=== PATIENT | female | born 1950 | race Two or more races ===

== ENCOUNTER → 2024-05-24 | Outpatient (CLI) | payer MEDICARE, MEDICAID, SELFPAY ==
--- NOTE | 2024-05-24 11:30 | XR_ITS ---
Examination: Screening digital mammography, bilateral Computer aided detection 3-D breast Tomosynthesis, bilateral Date and time of exam: May 24, 2024 1202 hours Compared to mammograms dating to May 26, 2015 Indication: Screening Technique: Nonmagnified MLO, CC views of the breasts to been obtained, reconstructed from 3-D Tomosynthesis images. R2 computer aided detection program utilized for evaluation of suspicious masses and/or abnormal calcifications. 3-D Tomosynthesis images obtained. Findings: Scattered areas of fibroglandular density Benign calcifications. No interval suspicious masses Impression: BI-RADS category II: Benign Findings. Recommend 1 year follow-up mammogram.
--- NOTE | 2024-05-24 12:00 | XR_ITS ---
Examination: Bone densitometry Date and time of exam:May 24, 2024 1224 hours INDICATIONS: Menopause age 49, family history mother with osteoporosis, levothyroxine 30 years vitamin D one year Technique: Lumbar spine and hip total bone mineralization values of an calculated. Peak reference and age match control results have been displayed. Findings: Lumbar spine total bone mineralization is1.423 gm/cm2. This is 3.4 standard deviations above peak reference. This is 5.7 standard deviations above age-matched controls. Hip total bone mineralization is 1.066 gm/cm2 This is 0.8 standard deviations above peak reference. This is 2.4 standard deviations above age-matched controls Impression: There is normal mineralization based on lumbar spine measurements. There is normal mineralization based on hip measurements Lumbar mineralization is increase 10.3% compared with March 17, 2018 Hip mineralization is increase 4.3% compared with March 17, 2018
--- NOTE | 2024-05-24 13:10 | XR_ITS ---
Examination: Breast ultrasound, unilateral, right complete Date and time of exam: May 24, 2024 1317 hours INDICATIONS: Right breast pain and palpable lump near the nipple note is beginning 5 months ago Technique: Real-time gordon scale ultrasonographic imaging performed right breast including all 4 quadrants as well as nipple retroareolar and axillary region. Findings: No cystic or solid mass IMPRESSION: BI-RADS Category 1: Negative study
== END | disposition home or self-care (01) ==
LOC: CDIM 11:54
PROVIDERS: PCP Internal Medicine; Referring Provider Internal Medicine; Visit Provider Internal Medicine
DX: Z12.31 Encounter for screening mammogram for malignant neoplasm of breast (principal); R92.323 Mammographic fibroglandular density, bilateral breasts; R92.1 Mammographic calcification found on diagnostic imaging of breast; M81.0 Age-related osteoporosis without current pathological fracture
CPT/HCPCS: 76641; 77063; 77067; 77080

== ENCOUNTER → 2024-05-25 | Outpatient (CLI) | payer MEDICARE, MEDICAID, SELFPAY ==
[2024-05-25 10:07] LABS: Collection Type, Urine Clean Catch
[2024-05-25 10:35] LABS: Basophils # (Auto) 0.1 Thou/mm3 (0.0-0.2); Basophils % (Auto) 1 % (0-2.5); Eosinophils # (Auto) 0.2 Thou/mm3 (0.0-0.5); Eosinophils % (Auto) 2 % (0-10); Hematocrit 40.8 % (36.0-46.0); Hemoglobin 13.2 g/dL (12.0-16.0); Immature Granulocytes % (Auto) 0 % (0-0); Immature Granulocytes Auto 0.02 Thou/mm3 (0.00-0.00); Lymphocytes # (Auto) 2.2 Thou/mm3 (1.0-4.8); Lymphocytes % (Auto) 27 % (10-50); Mean Corpuscular HGB Conc 32.4 g/dl (31.0-37.0); Mean Corpuscular Hemoglobin 27.9 pg (25.0-35.0); Mean Corpuscular Volume 86 fL (80-100); Monocytes # (Auto) 0.7 Thou/mm3 (0.0-0.8); Monocytes % (Auto) 9 % (0-12); Neutrophils # (Auto) 5.1 Thou/mm3 (1.8-7.7); Neutrophils % (Auto) 62 % (37-80); Nucleated Red Blood Cell % 0 /100 WBC (0); Platelet Count 300 Thou/mm3 (140-440); RDW Standard Deviation 42.5 fL (36.4-46.3); Red Blood Count 4.73 Miln/mm3 (4.00-5.20); White Blood Count 8.3 Thou/mm3 (3.6-11.0)
[2024-05-25 10:36] LABS: Bilirubin,Urine Negative (Negative); Blood,Urine Negative (Negative); Clarity,Urine Clear (Clear/Hazy); Color,Urine Lt-Yellow (Lt Yel-Yel); Glucose, Urine Negative (Negative); Ketones,Urine Negative (Negative); Leukocyte Esterase,Urine Negative (Negative); Nitrite,Urine Negative (Negative); PH,Urine 7.5 (5.0-7.0); Protein,Urine Negative (Neg - Trace); RBC,Urine 2 /hpf (0-3); Specific Gravity,Urine 1.016 (1.001-1.035); Squamous Epithelial Cell,Urine 1 /hpf (0-5); Urobilinogen,Urine Negative mg/dL (0.0-1.0); WBC,Urine 1 /hpf (0-5)
[2024-05-25 10:43] LABS: Glucose Estimated Average 120 mg/dL (80-131); Hemoglobin A1C 5.8 % Hgb (4.8-6.0)
[2024-05-25 10:51] LABS: Alanine Aminotransferase 15 U/L (10-49); Albumin, Serum 4.3 gm/dL (3.4-4.8); Albumin/Globulin Ratio 1.4 (1.2-2.2); Alkaline Phosphatase 87 U/L (46-116); Anion Gap 8 (7-16); Aspartate Amino Transferase 18 U/L (0-34); BUN/Creatinine Ratio 16 Ratio (12-20); Bilirubin,Total 0.5 mg/dL (0.3-1.2); Blood Urea Nitrogen 14 mg/dL (9-23); Calcium 9.3 mg/dL (8.3-10.6); Calcium (Corrected) 9.3 mg/dL (8.5-10.1); Carbon Dioxide 29.3 mMol/L (20.0-31.0); Cardiac Risk Estimate 4.2 RATIO (3.7-5.6); Chloride 103 mMol/L (98-107); Cholesterol 181 mg/dL (132-200); Creatinine (Component) 0.9 mg/dL (0.6-1.3); Glucose 108 mg/dL (74-106); HDL Cholesterol 43 mg/dL (40-60); LDL Cholesterol,Calculated 125 mg/dL (0-130); Osmolality,Calculated 280 (275-295); Potassium 4.2 mMol/L (3.4-5.1); Sodium 140 mMol/L (136-145); Thyroid Stimulating Hormone 1.22 uIU/mL (0.55-4.78); Total Protein 7.3 gm/dL (5.7-8.2); Triglycerides 67 mg/dL (30-150); Uric Acid 7.8 mg/dL (3.1-7.8); eGFR > 60 See Note
[2024-05-25 14:05] LABS: Vitamin D 25 Hydroxy Total 53.1 ng/mL (7.3-40.2)
[2024-05-25 16:12] LABS: Vitamin B12 276 pg/mL (211-911)
== END | disposition home or self-care (01) ==
LOC: COPL 09:29
PROVIDERS: PCP Internal Medicine; Referring Provider Internal Medicine; Visit Provider Internal Medicine
DX: I10 Essential (primary) hypertension (principal); E78.5 Hyperlipidemia, unspecified
CPT/HCPCS: 36415; 80053; 80061; 81001; 82306; 82607; 83036; 84443; 84550; 85025

== ENCOUNTER → 2024-11-21 | Outpatient (CLI) | payer MEDICARE, MEDICAID, SELFPAY ==
[2024-11-21 10:48] LABS: Albumin, Serum 4.4 gm/dL (3.4-4.8); Anion Gap 8 (7-16); BUN/Creatinine Ratio 10 Ratio (12-20); Blood Urea Nitrogen 8 mg/dL (9-23); Calcium 9.4 mg/dL (8.3-10.6); Calcium (Corrected) 9.4 mg/dL (8.5-10.1); Carbon Dioxide 25.8 mMol/L (20.0-31.0); Chloride 107 mMol/L (98-107); Creatinine (Component) 0.8 mg/dL (0.6-1.3); Free T4 (Free Thyroxine) 1.54 ng/dL (0.89-1.76); Glucose 104 mg/dL (74-106); Osmolality,Calculated 279 (275-295); Phosphorous 2.7 mg/dL (2.4-5.1); Potassium 3.8 mMol/L (3.4-5.1); Sodium 141 mMol/L (136-145); Thyroid Stimulating Hormone 0.57 uIU/mL (0.55-4.78); eGFR > 60 See Note
[2024-11-21 11:06] LABS: Glucose Estimated Average 114 mg/dL (80-131); Hemoglobin A1C 5.6 % Hgb (4.8-6.0)
== END | disposition home or self-care (01) ==
LOC: COPL 09:27
PROVIDERS: PCP Internal Medicine; Referring Provider Internal Medicine; Visit Provider Internal Medicine
DX: E03.9 Hypothyroidism, unspecified (principal); I10 Essential (primary) hypertension; R73.03 Prediabetes
CPT/HCPCS: 36415; 80069; 83036; 84439; 84443

== ENCOUNTER → 2024-11-26 | Outpatient (CLI) | payer MEDICARE, MEDICAID, SELFPAY ==
[2024-11-26 12:08] LABS: OBS Performed By LAB; OBS QC OK? Yes
[2024-11-26 15:11] LABS: OBS Developer Lot # 4-24-551749; Occult Blood, Stool Negative (Negative); Occult Blood, Stool #2 Negative (Negative); Occult Blood, Stool #3 Negative (Negative)
[2024-11-26 15:12] LABS: OBS Developer Expiration Date 02-28-2027
== END | disposition home or self-care (01) ==
LOC: SLDO 11:49
PROVIDERS: PCP Internal Medicine; Referring Provider Internal Medicine; Visit Provider Internal Medicine
DX: Z12.11 Encounter for screening for malignant neoplasm of colon (principal)
CPT/HCPCS: 82270

== ENCOUNTER → 2024-11-30 | Outpatient (CLI) | payer MEDICARE, MEDICAID, SELFPAY ==
--- NOTE | 2024-11-30 | XR_ITS ---
Examination: Knee, right, 3 views Technique: Knee AP, lateral, oblique 3 views Date and time of exam: November 30, 2024, 0202 hours INDICATIONS: Right knee pain beginning 1 week ago FINDINGS: Mild to moderate tricompartment osteoarthritis, most prominent patellofemoral joint Small knee effusion No fracture IMPRESSION: Mild to moderate tricompartment osteoarthritis
== END | disposition home or self-care (01) ==
LOC: CDIM 11:17
PROVIDERS: PCP Internal Medicine; Referring Provider Internal Medicine; Visit Provider Internal Medicine
DX: M17.11 Unilateral primary osteoarthritis, right knee (principal)
CPT/HCPCS: 73560

== ENCOUNTER 2024-12-13 10:29 | Outpatient (AMB) | payer MEDICARE, MEDICAID, SELFPAY ==
[2024-12-13 10:52] VITALS: BP 134/81; PULSE 72; RESP 18; TEMP 36.6; O2SAT 95; BMI 34.2
--- NOTE | 2024-12-13 10:52 | ORTHONT_ITS ---
Vital signs 12/13/24 10:52 Height 1.52 m Height Method Stated Weight 79.435 kg Weight Measurement Method Standing Scale BMI 34.2 BP 134/81 H Blood Pressure Source Automatic Cuff Blood Pressure Location Right Upper Arm Position Sitting Respiration 18 Pulse 72 Pulse Source Monitor Temp 97.9 F Temp Source Temporal Artery Scan Pulse Oximetry (%) 95 Oxygen Delivery Method Room Air Med/Allergies Allergies & Medications Allergies clindamycin Allergy (Severe, Verified 12/13/24 10:54) Swelling of Lip/Tongue/Throat Penicillins Allergy (Severe, Verified 12/13/24 10:54) Anaphylaxis amlodipine Allergy (Intermediate, Verified 12/13/24 10:54) SWELLING/BODY ACHES hydrochlorothiazide Allergy (Intermediate, Verified 12/13/24 10:54) SWELLING/BODY ACHES losartan Allergy (Intermediate, Verified 12/13/24 10:54) SWELLING/BODY ACHES nitrofurantoin Allergy (Intermediate, Verified 12/13/24 10:54) SWELLING/BODY ACHE tolterodine (From Detrol) Allergy (Intermediate, Verified 12/13/24 10:54) SWELLING/BODY ACHES Medication Reconciliation No Known Home Medications 12/13/24 [History Confirmed 12/13/24] Exam Exam PHYSICAL EXAM Breathing is nonlabored. Patient has a normal mood and affect. Bilateral extremities were evaluated and demonstrates sensation intact to light touch. Palpable pedal pulses are present. No significant edema is present. Bilateral hips were examined. The patient has no pain with log roll of the hips. Internal rotation to 30 degrees and external rotation to 30 degrees is painless. Negative FADIR. Left knee was examined today. The left knee is in reasonable alignment. Range of motion from 0-120 degrees. Knee is stable to varus and valgus as well as AP translation with <5mm. Patient has a negative McMurrays. There is no pain with patellofemoral compression and no crepitus noted. The knee is nontender to palpation. The right knee was also examined. The right knee is in varus alignment. Range of motion from 0-115 degrees. Knee is stable to varus and valgus as well as AP translation with <5mm. Patient has a negative McMurrays. There is no pain with patellofemoral compression and no crepitus noted. The knee is tender to palpation medially. Assessment and Plan Problem List (1) Pain in right knee: Status: Acute Plan: ASSESSMENT AND PLAN 1. Right knee pain: The patient's right knee pain has persisted for 3 to 4 years and worsened about 4 weeks ago. The pain is constant, rated at 6 out of 10, and is present all day and night. She has had 1 cortisone injection, which did not provide relief. Diclofenac gel and tablets have also been ineffective. The pain is exacerbated by walking and relieved somewhat by using a walker or shopping cart for support. X-rays from 11/30/2024 show mild to moderate arthritis of the right knee. An additional x-ray with a tunnel view will be ordered to better assess the arthritis. Authorization for another injection will be obtained, and an injection on the inside of the knee will be considered. Voltaren cream was recommended, but the patient has already tried diclofenac gel without success. A knee brace will be provided to help with weight-bearing. Advanced Care Planning Discussion Advance care planning discussed with:: patient Office Procedures GNS Level of Care Nursing/Assessment Patient Status: Initial/New Patient Nursing Assessment/Reassesment: Medication Reconciliation, Update PMH in EMR and Vital Signs Coordination of Care: Complex Care and Chronic Disease 1-5, Education Complex Pt/Fam, Consent,records obtained, informed consent, Lab and Imaging orders, Results/Orders obtained and Staff clarify orders Special Needs: Language special needs New Patient Charge New Patient Point Assignment: 1109 New Patient Point Charge: SALES DEMONSTRATOR Level 3 ([id number]) MA Intake Visit Data Collection New Patient or Established: Established Patient (seen at [facility] within 3 years) Reason for Visit:: RIGHT KNEE PAIN Seen by Clinical Staff ONLY (RN/MA): No Verbal consent obtained for Telemed visit?: No Agricultural Mechanic Required: Yes PCP or OBGYN visit in last 3 months: Yes Hx Now: No Do You Feel Safe at Home: Yes Authorities Contacted: N/A Questionairres Past Medical History Past Medical History Have you ever been diagnosed with any of the following: Neurological Problems Seizures: No Robertson's Palsy: Yes (AT AGE 13) Cardiology Problems Congestive Heart Failure: No Hypertension: Yes Respiratory Problems Chronic Obstructive Pulmonary Disease (COPD): No Asthma: No Bronchitis: Yes Pneumonia: No Stomache/Intestinal Problems Hepatitis: No Ulcer: No Gastroesophageal Reflux Disease: Yes Genital/Urinary Problems Renal Disease: No Kidney Stones: No Inguinal Hernia: No Reproductive Problems Previous Pregnancies: Yes (X4) Musculoskeletal Problems Rheumatoid Arthritis: Yes Fibromyalgia: Yes Head,Eye,Nose,Throat Problems Cataracts: Yes (BILATERAL, NO SURGERY) Endocrine Problems Diabetes Mellitus Type 1: No Diabetes Mellitus Type 2: No Hypothyroidism: Yes Blood Problems Anemia: No Psychologic Problems Depression: No Anxiety: Yes Other Problems Hospitalization: Yes (05/14/20 DUE TO HIGH BLOOD PRESSURE) Shingles: No Falls: No Blood Transfusions: No Blood Transfusion Reaction: No Anesthesia Reactions: No MRSA: No Chicken Pox: Yes Measles: Yes Mumps: Yes Cancer: No Surgical History Hysterectomy: No Subjective Visit Visit for: new patient and knee Immunization / Flu Flu Vaccine in the Last 12 Months: No Flu Vaccine Exclusion Criteria: No Exclusion Criteria History of Present Illness Chief complaint: RIGHT KNEE PAIN HISTORY OF PRESENT ILLNESS I, John Nugent, have obtained verbal consent from the patient, to be recorded during this encounter which may include, but not limited to, medical history, examination, treatment plans, and relevant health information.? Patient was informed that recording will be read and reviewed by myself before inclusion in the medical chart. The patient is a 74-year-old female who presents for evaluation of her right knee. She reports that the pain in her right knee has been present for 3 to 4 years, with a significant increase in severity occurring approximately 4 weeks ago. The pain is constant, rated as a 6 out of 10, and persists throughout the day and night. She describes the pain as shooting down her leg, accompanied by a burning sensation. Prolonged sitting exacerbates the discomfort, necessitating frequent changes in position between sitting and standing. She does not experience any numbness or tingling sensations. The pain is localized to the right side, with no reported issues on the left. She also reports swelling in the affected area. She has been using a cane for mobility due to the severity of the pain. She has been using diclofenac gel and tablets, but these have not provided relief. She has received one cortisone injection, which unfortunately did not alleviate the pain. Personal History Occupation: RETIRED Red flag PMH: none BMI Counceling provided: No Pain Pain level (0-10): 10 Pain duration: CONSTANT Pain location: inside (medial) Pain quality: sharp and burning Pain timing: night, increases with activity and stairs Associated signs & symptoms: stiffness Ambulatory data Ambulatory device: cane Treatments Number of previous injections: 1 Improvement with previous injections: No Improvement with PT: No Improvement with NSAIDS: no (DICLOFENAC) Review of Systems Review of Systems: All systems negative unless otherwise noted in HPI.
--- NOTE | 2024-12-13 11:00 | XR_ITS ---
EXAMINATION: PA knee right single view TECHNIQUE: Standing PA flexion right knee single view Date and time: December 13, 2024, 11:24 a.m. INDICATIONS: Right knee pain beginning 3 weeks ago. FINDINGS: Mild osteoarthritis medial lateral joint spaces Spurring of the intercondylar spines Moderate osteopenia No fracture Suggest follow-up axillary view of the patella as clinically warranted IMPRESSION: Osteoarthritis as above
== END 2024-12-13 11:12 | disposition home or self-care (01) ==
LOC: HODSRG 10:29
PROVIDERS: PCP Internal Medicine; Referring Provider Internal Medicine; Supervising Provider Orthopaedic Surgery Adult Reconstructive Orthopaedic Surgery; Visit Provider Orthopaedic Surgery Adult Reconstructive Orthopaedic Surgery
DX: M25.561 Pain in right knee (principal); M17.11 Unilateral primary osteoarthritis, right knee; I10 Essential (primary) hypertension
CPT/HCPCS: 73564; 99203; G0463

== ENCOUNTER 2024-12-18 10:28 | Outpatient (AMB) | payer MEDICARE, MEDICAID, SELFPAY ==
[2024-12-18 10:55] VITALS: BP 111/75; PULSE 80; RESP 19; TEMP 36.3; O2SAT 97; BMI 34.2
--- NOTE | 2024-12-18 10:55 | ORTHONT_ITS ---
Vital signs 12/18/24 10:55 Height 1.52 m Height Method Stated Weight 79.01 kg Weight Measurement Method Standing Scale BMI 34.2 BP 111/75 Blood Pressure Source Automatic Cuff Blood Pressure Location Left Upper Arm Position Sitting Respiration 19 Pulse 80 Pulse Source Monitor Temp 97.3 F Temp Source Temporal Artery Scan Pulse Oximetry (%) 97 Oxygen Delivery Method Room Air Med/Allergies Allergies & Medications Allergies clindamycin Allergy (Severe, Verified 12/18/24 10:56) Swelling of Lip/Tongue/Throat Penicillins Allergy (Severe, Verified 12/18/24 10:56) Anaphylaxis amlodipine Allergy (Intermediate, Verified 12/18/24 10:56) SWELLING/BODY ACHES hydrochlorothiazide Allergy (Intermediate, Verified 12/18/24 10:56) SWELLING/BODY ACHES losartan Allergy (Intermediate, Verified 12/18/24 10:56) SWELLING/BODY ACHES nitrofurantoin Allergy (Intermediate, Verified 12/18/24 10:56) SWELLING/BODY ACHE tolterodine (From Detrol) Allergy (Intermediate, Verified 12/18/24 10:56) SWELLING/BODY ACHES Medication Reconciliation meloxicam 7.5 mg tablet 7.5 mg PO QDAY #45 tabs 12/18/24 [Rx] pregabalin 75 mg capsule (Lyrica) 75 mg PO BID #60 caps 12/18/24 [Rx] Exam Exam PHYSICAL EXAM Breathing is nonlabored. Patient has a normal mood and affect. Bilateral extremities were evaluated and demonstrates sensation intact to light touch. Palpable pedal pulses are present. No significant edema is present. Bilateral hips were examined. The patient has no pain with log roll of the hips. Internal rotation to 30 degrees and external rotation to 30 degrees is painless. Negative FADIR. Left knee was examined today. The left knee is in reasonable alignment. Range of motion from 0-120 degrees. Knee is stable to varus and valgus as well as AP translation with <5mm. Patient has a negative McMurrays. There is no pain with patellofemoral compression and no crepitus noted. The knee is nontender to palpation. The right knee was also examined. The right knee is in varus alignment. Range of motion from 0-115 degrees. Knee is stable to varus and valgus as well as AP translation with <5mm. Patient has a negative McMurrays. There is no pain with patellofemoral compression and no crepitus noted. The knee is tender to palpation medially. X-rays of the Mild to moderate arthritis of the right knee. Assessment and Plan Problem List (1) Pain in right knee: Status: Acute Plan: ASSESSMENT AND PLAN 1. Right knee pain: The patient's right knee pain has persisted for 3 to 4 years and worsened about 4 weeks ago. The pain is constant, rated at 6 out of 10, and is present all day and night. She has had 1 cortisone injection, which did not provide relief. Diclofenac gel and tablets have also been ineffective. The pain is exacerbated by walking and relieved somewhat by using a walker or shopping cart for support. X-rays from 11/30/2024 show mild to moderate arthritis of the right knee. We will try a cortisone injection today as she has mild to moderate arthritis Recommend knee cortisone injection as patient would like to proceed with conservative treatment at this time. The risks and benefits of the procedure were reviewed with the patient and patient gave verbal consent to continue with the procedure. Procedure: performed by Dr. Nugent Using sterile technique the Right knee was thoroughly prepped with alcohol, and approximately 1 cc of Depo-Medrol 80mg/mL and 4 cc of 0.2% ropivacaine was injected without resistance into the medial tibial femoral joint space. The patient tolerated the procedure. Advanced Care Planning Discussion Advance care planning discussed with:: patient Office Procedures GNS Level of Care Nursing/Assessment Patient Status: Established Patient Nursing Assessment/Reassesment: Medication Reconciliation, Update PMH in EMR and Vital Signs Coordination of Care: Complex Care and Chronic Disease 1-5, Education Complex Pt/Fam, Consent,records obtained, informed consent, Results/Orders obtained and Staff clarify orders Special Needs: Language special needs Established Patient Charge Established Patient Point Assignment: 95 Established Patient Point Charge: EP Level 3 (80-115) Surgical Proc/IM SQ injection Minor Surgical Procedure: Yes (KNEE INJECTION) Medication Given Medication Given Medication Given: Yes Documented Dose Given: 1 Route: Infiitration Medication Given Medication Given Medication Given: Yes Documented Dose Given: 4 Route: Infiitration Office Meds methylprednisolone acetate 80 mg/mL suspension for injection Performing Provider: John Nugent MD Performing Location: [facility] Administered by: John Nugent MD on 12/18/24 11:25 Dose Route Admin Location Dispensed Lot Number Expiration Date Pack age [facility] [place] [facility] Plan Administrator 80 mg intra-articular 1 mL [id number] 08/20/26 [address]-0 [id number] [employer] ropivacaine (PF) 2 mg/mL (0.2 %) injection solution Performing Provider: John Nugent MD Performing Location: [facility] Administered by: John Nugent MD on 12/18/24 11:36 Dose Route Admin Location Dispensed Lot Number Expiration Date Pack age [facility] Hospital Plan Administrator 20 mL Infiltration 20 mL [id number] 03/22/27 10688-021-71 [id number] [facility] Intake Visit Data Collection New Patient or Established: Established Patient (seen at [facility] within 3 years) Reason for Visit:: RIGHT KNEE PAIN Seen by Clinical Staff ONLY (RN/MA): No Verbal consent obtained for Telemed visit?: No Bottle Gauger Required: Yes PCP or OBGYN visit in last 3 months: Yes Hx Now: No Do You Feel Safe at Home: Yes Authorities Contacted: N/A Questionairres Past Medical History Past Medical History Have you ever been diagnosed with any of the following: Neurological Problems Seizures: No Robertson's Palsy: Yes (AT AGE 13) Cardiology Problems Congestive Heart Failure: No Hypertension: Yes Respiratory Problems Chronic Obstructive Pulmonary Disease (COPD): No Asthma: No Bronchitis: Yes Pneumonia: No Stomache/Intestinal Problems Hepatitis: No Ulcer: No Gastroesophageal Reflux Disease: Yes Genital/Urinary Problems Renal Disease: No Kidney Stones: No Inguinal Hernia: No Reproductive Problems Previous Pregnancies: Yes (X4) Musculoskeletal Problems Rheumatoid Arthritis: Yes Fibromyalgia: Yes Head,Eye,Nose,Throat Problems Cataracts: Yes (BILATERAL, NO SURGERY) Endocrine Problems Diabetes Mellitus Type 1: No Diabetes Mellitus Type 2: No Hypothyroidism: Yes Blood Problems Anemia: No Psychologic Problems Depression: No Anxiety: Yes Other Problems Hospitalization: Yes (05/14/20 DUE TO HIGH BLOOD PRESSURE) Shingles: No Falls: No Blood Transfusions: No Blood Transfusion Reaction: No Anesthesia Reactions: No MRSA: No Chicken Pox: Yes Measles: Yes Mumps: Yes Cancer: No Surgical History Hysterectomy: No Subjective Visit Visit for: follow up visit, knee and x-rays Immunization / Flu Flu Vaccine in the Last 12 Months: No Flu Vaccine Exclusion Criteria: No Exclusion Criteria History of Present Illness Chief complaint: RIGHT KNEE PAIN HISTORY OF PRESENT ILLNESS I, John Nugent, have obtained verbal consent from the patient, to be recorded during this encounter which may include, but not limited to, medical history, examination, treatment plans, and relevant health information.? Patient was informed that recording will be read and reviewed by myself before inclusion in the medical chart. The patient is a 74-year-old female who presents for evaluation of her right knee. She reports that the pain in her right knee has been present for 3 to 4 years, with a significant increase in severity occurring approximately 4 weeks ago. The pain is constant, rated as a 6 out of 10, and persists throughout the day and night. She describes the pain as shooting down her leg, accompanied by a burning sensation. Prolonged sitting exacerbates the discomfort, necessitating frequent changes in position between sitting and standing. She does not experience any numbness or tingling sensations. The pain is localized to the right side, with no reported issues on the left. She also reports swelling in the affected area. She has been using a cane for mobility due to the severity of the pain. She has been using diclofenac gel and tablets, but these have not provided relief. She has received one cortisone injection, which unfortunately did not alleviate the pain. Personal History Occupation: RETIRED Red flag PMH: none BMI Counceling provided: No Pain Pain level (0-10): 8 Pain duration: CONSTANT Pain location: inside (medial) Pain quality: sharp and burning Pain timing: night, increases with activity and stairs Associated signs & symptoms: stiffness Ambulatory data Ambulatory device: cane Treatments Number of previous injections: 1 Improvement with previous injections: No Improvement with PT: No Improvement with NSAIDS: no (DICLOFENAC) Review of Systems Review of Systems: All systems negative unless otherwise noted in HPI.
== END 2024-12-18 11:37 | disposition home or self-care (01) ==
LOC: HODSRG 10:28
PROVIDERS: PCP Internal Medicine; Referring Provider Internal Medicine; Supervising Provider Orthopaedic Surgery Adult Reconstructive Orthopaedic Surgery; Visit Provider Orthopaedic Surgery Adult Reconstructive Orthopaedic Surgery
DX: M25.561 Pain in right knee (principal); M17.11 Unilateral primary osteoarthritis, right knee; I10 Essential (primary) hypertension
CPT/HCPCS: 20610; 99213; J1010; J2795; G0463

== ENCOUNTER 2024-12-28 15:56 | Emergency (ER) | payer OTHER, MEDICAID, SELFPAY ==
[2024-12-28 15:57] VITALS: BMI 32.0
[2024-12-28 16:08] VITALS: BP 147/71; PULSE 84; RESP 22; TEMP 38.3; O2SAT 95
--- NOTE | 2024-12-28 16:12 | XR_ITS ---
CLINICAL INDICATION: r/o pna. Fever and high blood pressure for 3 days. TECHNIQUE: XR chest 1V portable Exam date and time: 12/28/2024 at 4:13 p.m. COMPARISON: 09/01/2019 FINDINGS: The cardiomediastinal silhouette is within normal limits. No airspace opacities suggestive of pneumonia. No mass detected. No pleural effusion or pneumothorax. Degenerative changes of the skeletal structures. Mild thoracic dextroscoliosis is again seen. No apparent acute osseous abnormality. IMPRESSION: No radiographic evidence for acute cardiopulmonary abnormality. No evidence for pneumonia as questioned. No significant change since prior exam.
--- NOTE | 2024-12-28 16:13 | PD.EDRME ---
Rapid Medical Screening Exam RME Arrival date/time: 12/28/24 15:56 74-year-old female with a history of hypothyroidism presents to the emergency room with a chief complaint of fevers, weakness x 3 days I have greeted and performed a focused initial assessment of this patient. A comprehensive ED assessment and evaluation of the patient, analysis of all test results, and completion of the medical decision making process will be conducted by additional ED providers. Chief Complaint: Fever Time Seen by Provider: 12/28/24 16:00 Vital signs: Vital Signs Temperature 101 F H 12/28/24 16:08 Pulse Rate 84 12/28/24 16:08 Respiratory Rate 22 H 12/28/24 16:08 Blood Pressure 147/71 H 12/28/24 16:08 Pulse Oximetry (%) 95 12/28/24 16:08 Oxygen Delivery Method Room Air 12/28/24 16:08 Vital signs reviewed by provider: Yes Exam: Soft nontender abdomen Clear bilateral lung sounds. Strong and regular rhythm Clinical Impression: Sepsis/UTI/gastroenteritis
[2024-12-28 16:24] VITALS: TEMP 38.3
[2024-12-28] MEDS: ACETAMINOPHEN 500 MG TABLET 1000 MG PO (16:24)
[2024-12-28 16:39] LABS: Collection Type, Urine Clean Catch
[2024-12-28 16:44] LABS: Basophils # (Auto) 0.0 Thou/mm3 (0.0-0.2); Basophils % (Auto) 0 % (0-2.5); Eosinophils # (Auto) 0.0 Thou/mm3 (0.0-0.5); Eosinophils % (Auto) 0 % (0-10); Hematocrit 43.8 % (36.0-46.0); Hemoglobin 14.2 g/dL (12.0-16.0); Immature Granulocytes Auto 0.07 Thou/mm3 (0.00-0.00); Lactate (Lactic Acid) 2.2 mMol/L (0.4-2.0); Lymphocytes # (Auto) 1.3 Thou/mm3 (1.0-4.8); Lymphocytes % (Auto) 9 % (10-50); Mean Corpuscular HGB Conc 32.4 g/dl (31.0-37.0); Mean Corpuscular Hemoglobin 28.1 pg (25.0-35.0); Mean Corpuscular Volume 87 fL (80-100); Monocytes # (Auto) 0.7 Thou/mm3 (0.0-0.8); Monocytes % (Auto) 5 % (0-12); Neutrophils # (Auto) 12.2 Thou/mm3 (1.8-7.7); Neutrophils % (Auto) 86 % (37-80); Nucleated Red Blood Cell # 0.00 Thou/mm3 (0.00-0.00); Nucleated Red Blood Cell % 0 /100 WBC (0); Platelet Count 231 Thou/mm3 (140-440); RDW Standard Deviation 41.9 fL (36.4-46.3); Red Blood Count 5.05 Miln/mm3 (4.00-5.20); White Blood Count 14.3 Thou/mm3 (3.6-11.0)
[2024-12-28 16:44] LABS: Bacteria,Urine Rare; Bilirubin,Urine Negative (Negative); Blood,Urine Trace (Negative); Color,Urine Lt-Yellow (Lt Yel-Yel); Glucose, Urine Negative (Negative); Ketones,Urine Negative (Negative); Leukocyte Esterase,Urine Positive (Negative); Nitrite,Urine Negative (Negative); PH,Urine 7.0 (5.0-7.0); Protein,Urine Trace (Neg - Trace); RBC,Urine 1 /hpf (0-3); Specific Gravity,Urine 1.011 (1.001-1.035); Squamous Epithelial Cell,Urine 1 /hpf (0-5); Urobilinogen,Urine Negative mg/dL (0.0-1.0); WBC,Urine 9 /hpf (0-5)
[2024-12-28 16:52] LABS: Clarity,Urine Hazy (Clear/Hazy)
[2024-12-28 17:01] LABS: Influenza A Ag Negative; Influenza B Ag Negative
[2024-12-28 17:09] LABS: Alanine Aminotransferase 24 U/L (10-49); Albumin, Serum 4.8 gm/dL (3.4-4.8); Albumin/Globulin Ratio 1.7 (1.2-2.2); Alkaline Phosphatase 111 U/L (46-116); Anion Gap 10 (7-16); Aspartate Amino Transferase 20 U/L (0-34); BUN/Creatinine Ratio 15 Ratio (12-20); Bilirubin,Total 0.7 mg/dL (0.3-1.2); Blood Urea Nitrogen 16 mg/dL (9-23); Calcium 8.8 mg/dL (8.3-10.6); Calcium (Corrected) 8.8 mg/dL (8.5-10.1); Carbon Dioxide 24.1 mMol/L (20.0-31.0); Chloride 98 mMol/L (98-107); Creatinine (Component) 1.1 mg/dL (0.6-1.3); Estimated Creatinine Clearance 44.4 mL/min (>60); Free T4 (Free Thyroxine) 1.50 ng/dL (0.89-1.76); Globulin 2.8 gm/dL (2.3-3.5); Glucose 108 mg/dL (74-106); Lipase 36 U/L (12-53); Osmolality,Calculated 266 (275-295); Potassium 4.0 mMol/L (3.4-5.1); Sodium 132 mMol/L (136-145); Thyroid Stimulating Hormone 0.73 uIU/mL (0.55-4.78); Total Protein 7.6 gm/dL (5.7-8.2); eGFR 53 See Note
[2024-12-28 17:11] LABS: Procalcitonin 0.98 ng/ml (0.0-0.49)
[2024-12-28 18:13] VITALS: BP 130/79; PULSE 77; RESP 16; TEMP 37.7; O2SAT 97
--- NOTE | 2024-12-28 18:20 | EDNOTE_ITS ---
ED Fever RME/HPI General Chief Complaint: Fever Stated Complaint: FEVER/HIGH BP x 2-3 DAYS Time Seen by Provider: 12/28/24 16:00 Arrival date/time: 12/28/24 15:56 74-year-old female patient came in for evaluation regarding fever. Been having fever for the last few days, comes and goes associated with elevated blood pressure. Denies any cough denies any chest pain denies any abdominal pain denies any other complaints no medication was taken prior to ER visit. RME / HPI RME / HPI Narrative: 12/28/24 15:56 74-year-old female with a history of hypothyroidism presents to the emergency room with a chief complaint of fevers, weakness x 3 days I have greeted and performed a focused initial assessment of this patient. A comprehensive ED assessment and evaluation of the patient, analysis of all test results, and completion of the medical decision making process will be conducted by additional ED providers. Exam: Soft nontender abdomen Clear bilateral lung sounds. Strong and regular rhythm Impression: Sepsis/UTI/gastroenteritis Related Data Previous Rx's ?Medication ?Instructions ?Recorded meloxicam 7.5 mg tablet 7.5 mg PO QDAY #45 tabs 11/22 10/15 pregabalin 75 mg capsule (Lyrica) 75 mg PO BID #60 cap s 12/18/24 cefuroxime axetil 500 mg tablet 500 mg PO BID #14 tabs 12/28/24 Allergies Allergy/AdvReac Type Severity Reaction Status Date / Time amlodipine Allergy Severe SWELLING/BODY Verified 12/28/24 16:02 ACHES clindamycin Allergy Severe Swelling Verified 12/28/24 16:02 of Lip/Tongue/Throat hydrochlorothiazide Allergy Severe SWELLING/BODY Verified 12/28/24 16:02 ACHES losartan Allergy Severe SWELLING/BODY Verified 12/28/24 16:02 ACHES nitrofurantoin Allergy Severe SWELLING/BODY Verified 12/28/24 16:02 ACHE Penicillins Allergy Severe Anaphylaxis Verified 12/28/24 16:02 tolterodine (From Detrol) Allergy Severe SWELLING/BODY Verified 12/28/24 16:02 ACHES Review of Systems Review of Systems Narrative Review of Systems: Review of system reviewed and within normal limits except mentioned in HPI Physical Exam Narrative Physical exam: VITAL SIGNS: Reviewed. GENERAL APPEARANCE: Alert and interactive, follows commands, no acute distress, HEAD AND FACE: Non-traumatic. ENT: PERRL, pink conjunctivitis, eyelid no trauma, Mucous membrane moist. NECK: Supple, nontender, no nuchal rigidity. CHEST: No tenderness, no crepitus, no paradoxical movement, no retractions. LUNGS: Clear, well ventilated, symmetric, no rales, no wheezing, no ronchi, no stridor, good breath sounds bilaterally. HEART: Regular rate, regular rhythm, no murmur, no gallops. ABDOMEN: Soft, positive bowel sounds, nondistended, no guarding, nontender, no rebound, no masses, RECTAL: Deferred. GENITAL: Deferred. NEUROLOGICAL: Gross motor function intact sensory function intact, Appropriate for age. MUSCULOSKELETAL: low back nontender, full range of motion. EXTREMITIES: Nontender, full range of motion. SKIN: Color pink, dry, no rash, no lacerations, no abrasions, no contusions. LYMPHATICS: Deferred. Course Quality Measures none Orders Category Date Time Status Bedside COVID-19 Antigen Test NOW Care 12/28/24 16:12 Active XR chest 1V portable Stat Exams 12/28/24 16:12 Completed Blood Culture (Lab) Stat Lab 12/28/24 16:34 Received CBC Stat Lab 12/28/24 16:34 Completed CMP [Comprehensive Metabolic Panel] Stat Lab 12/28/24 16:34 Completed Free T4 (Free Thyroxine) Stat Lab 12/28/24 16:34 Completed Influenza A & B Rapid Panel Stat Lab 12/28/24 16:25 Completed Lactate (Lactic Acid) Stat Lab 12/28/24 16:34 Results Lipase Stat Lab 12/28/24 16:34 Completed Procalcitonin Stat Lab 12/28/24 16:34 Completed TSH [Thyroid Stimulating Hormone] Stat Lab 12/28/24 16:34 Completed UA [Urinalysis] Stat Lab 12/28/24 16:30 Completed Urine Culture Stat Lab 12/28/24 16:30 Received Acetaminophen Tab [Tylenol ES Tab] Med 12/28/24 16:12 Discontinued 1,000 mg PO X1 ONE Ringers Lactated 1000 ml [Lactated Ringers] 1,000 ml Med 12/28/24 18:19 Active IV 999 mls/hr cefTRIAXone/D5w 1gm IV premix [Rocephin/D5w 1gm IV Med 12/28/24 18:19 Discontinued premix] 1 gm in 50 ml IV X1 Vital Signs Vital signs: Vital Signs Temperature 101 F H 12/28/24 16:08 Pulse Rate 84 12/28/24 16:08 Respiratory Rate 22 H 12/28/24 16:08 Blood Pressure 147/71 H 12/28/24 16:08 Pulse Oximetry (%) 95 12/28/24 16:08 Oxygen Delivery Method Room Air 12/28/24 16:08 Fever [facility] Narrative [facility] Narrative:: 74-year-old female patient came in for evaluation regarding fever. Been having fever for the last few days, comes and goes associated with elevated blood pressure. Denies any cough denies any chest pain denies any abdominal pain denies any other complaints no medication was taken prior to ER visit. Patient's workup is significant for WBC count of 14.2 lactic acid slight elevated 2.2, positive for UTI. I personally reviewed and interpreted the x-ray of this patient. There is no acute abnormalities found, no infiltrates no pneumothorax no hemothorax normal chest x-ray. Review of other structures was without significant abnormal findings also. I additionally reviewed the radiologist report and agree with the interpretation. Patient received CeftriaxoneIV, Tylenol and IV fluids. Patient stable for discharge home. Repeat lactic acid pending at this time. Patient data External records reviewed:: None Clinical information provided by:: patient Social determinants that could affect healthcare access:: none Patient has the following chronic illnesses:: Hypertension How is presenting disease/condition affected by chronic disease/condition?: uneffected by Evaluation data The following diagnostics were reviewed and interpreted by me:: lab results and radiology exam(s) Lab and/or radiology exams considered but not ordered:: None Interpretation Summary: See results [facility] Medications / Prescriptions Medications or Prescriptions considered but not ordered:: None Medication administrations:: Medication Administration History Lactated Ringer's (Lactated Ringers) 1,000 mls @ 999 mls/hr IV .Q1H1M ONE Stop: 12/28/24 19:19 Last Admin: 12/28/24 18:36 Dose: 999 mls/hr Documented By: EF Discontinued Medications Acetaminophen (Acetaminophen 500 Mg Tablet) 1,000 mg PO X1 ONE Stop: 12/28/24 16:13 Last Admin: 12/28/24 16:24 Dose: 1,000 mg Documented By: COSTA Ceftriaxone Sodium/Dextrose (Rocephin/D5w 1gm Iv Premix) 1 gm in 50 mls @ 100 mls/hr IV X1 ONE Stop: 12/28/24 18:48 Last Admin: 12/28/24 18:35 Dose: 100 mls/hr Documented By: EF See MDM Consultations Consultation(s) initiated? (list below): No Diagnosis Fever Differential Diagnosis: viral infection and other (UTI, viral infection) Most likely diagnosis given after review of the tests above:: Fever, UTI Admission Indicated Admission indicated?: not indicated Admission Request Was there a request for admission?: No Disposition Plan Disposition Plan: Discharge Discharge Attestation Discharge Attestation: The patient and all family members were given an opportunity to ask questions and understood the discharge instructions. Discharge instructions specifically effects, indications for sooner follow up or return to the emergency department, and the expected course of current diagnosis. Patient condition: Stable Discharge Plan Plan Patient Disposition: HOME (Self Care) Discharge Disposition comment: stable Prescriptions/Referrals Prescriptions/Med Rec: New cefuroxime axetil 500 mg tablet 500 mg PO BID Qty: 14 0RF No Action meloxicam 7.5 mg tablet 7.5 mg PO QDAY Qty: 45 3RF pregabalin [Lyrica] 75 mg capsule 75 mg PO BID Qty: 60 0RF Referrals: Isaiah Webb MD [Primary Care Provider, Nephrology] - In 1 week Problem List Clinical Impression: UTI (urinary tract infection) Patient/Caregiver Discharge Instructions Discharge Activity: activity as tolerated Education Materials: Understanding Urinary Tract ... Additional Instructions: Thank you for the opportunity for serving you today. You are stable for discharged . You are advised to: Follow-up with your PCP in 1 to 2 days Return to ED for worsening of symptoms Increase oral fluids Take medication as prescribed Print Language: Ma[place] Stand Alone Forms: Alia Award Info., Patient Portal Info Letter
[2024-12-28] MEDS: cefTRIAXone/D5w 1gm IV premix 1 GM/50 ML BAG IV (18:35)
[2024-12-28] MEDS: RINGERS LACTATED 1000 ML 1,000 ML 999 ML IV (18:36)
[2024-12-28 19:41] LABS: Reflex Lactate? Y
[2024-12-28 20:04] VITALS: BP 133/63; PULSE 71; RESP 18; O2SAT 95
== END 2024-12-28 20:05 | disposition home or self-care (01) ==
PROVIDERS: Nurse Practitioner Family; Emergency Provider Nurse Practitioner Family; PCP Internal Medicine
DX: N39.0 Urinary tract infection, site not specified (principal); E03.9 Hypothyroidism, unspecified
CPT/HCPCS: 36415; 71045; 80053; 81001; 83605; 83690; 84145; 84439; 84443; 85025; 87040; 87077; 87086; 87186; 87502; 87635; 96361; 96365; 99283; J0696; J7120; A9270